=== PATIENT | male | born 1955 | race Caucasian/White ===

== ENCOUNTER 2017-05-14 17:51 | Emergency (ER) | payer SELFPAY ==
[~2017-05-14] VITALS: Ht 162.6 cm; Wt 72.7 kg
[2017-05-14 19:48] LABS: ANION GAP 15 mmol/L (8-16); CALCIUM, TOTAL 8.7 mg/dL (8.8-10.5); CARBON DIOXIDE 20 mmol/L (22-29); CHLORIDE 102 mmol/L (98-107); CREATININE 0.64 mg/dL (0.60-1.30); GLOMERULAR FILTR. RATE CALC > 60 mL/min (>60); POTASSIUM 3.6 mmol/L (3.5-5.1); SODIUM SERUM 137 mmol/L (136-145); UREA NITROGEN, BLOOD 5 mg/dL (7-18)
[2017-05-14 19:53] LABS: BASOPHILS % (AUTO) 1.5 % (0.0-2.0); EOSINOPHILS % (AUTO) 2.5 % (1.0-6.0); HEMATOCRIT 39.2 % (41-53); HEMOGLOBIN 13.6 g/dL (13.5-17.5); LYMPHOCYTES # (AUTO) 1.6 K/uL (1.0-4.8); LYMPHOCYTES % (AUTO) 28.1 % (22.0-44.0); MEAN CORPUSCULAR HEMOGLOBIN 32.2 pg (26.0-34.0); MEAN CORPUSCULAR HGB CONC 34.7 G/dL (31.0-37.0); MEAN CORPUSCULAR VOLUME 93 fL (80-100); MONOCYTES # (AUTO) 0.6 K/uL (0.1-1.0); MONOCYTES % (AUTO) 10.3 % (2.0-9.0); NEUTROPHILS # (AUTO) 3.2 K/uL (1.8-7.7); NEUTROPHILS % (AUTO) 57.6 % (40.0-70.0); RED BLOOD CELL COUNT(AUTO) 4.23 MIL/uL (4.50-5.90); RED CELL DISTRIBUTION WIDTH 14.9 % (11.5-14.5); WHITE BLOOD COUNT (AUTO) 5.6 K/uL (4.5-11.0)
[2017-05-14 19:54] LABS: ALANINE AMINOTRANSFERASE 60 U/L (12-78); ALBUMIN 3.7 g/dL (3.4-5.0); ASPARTATE AMINOTRANSFERASE 83 U/L (15-37); BILIRUBIN,TOTAL 0.9 mg/dL (0.1-1.0); TOTAL PROTEIN, SERUM 8.2 g/dL (6.4-8.2)
[2017-05-14] MEDS ORDERED: TraMADol HCL 50 MG TABLET PO ONE (20:15)
[2017-05-14 20:34] LABS: PLATELET COUNT (AUTO) 128 K/uL (150-450)
[2017-05-14] MEDS ORDERED: CEFTAROLINE 600 MG/D5W 250 ML IV ONE (21:30)
[2017-05-14 22:47] VITALS: BP 129/74
== END 2017-05-14 22:51 | disposition home or self-care (01) ==
LOC: EMS 17:53
DX: L03.113 Cellulitis of right upper limb (principal); R94.5 Abnormal results of liver function studies; D69.6 Thrombocytopenia, unspecified
CPT/HCPCS: 36415; 73130; 80053; 85025; 87040; 96365; 99285; J0712

== ENCOUNTER 2017-12-20 18:54 | Emergency (ER) | payer SELFPAY ==
[~2017-12-20] VITALS: Ht 170.2 cm; Wt 80.0 kg
[2017-12-20 19:38] LABS: HEMATOCRIT 39.8 % (41-53); HEMOGLOBIN 13.7 g/dL (13.5-17.5); MEAN CORPUSCULAR HEMOGLOBIN 31.4 pg (26.0-34.0); MEAN CORPUSCULAR HGB CONC 34.3 G/dL (31.0-37.0); MEAN CORPUSCULAR VOLUME 91 fL (80-100); PLATELET COUNT (AUTO) 65 K/uL (150-450); RED BLOOD CELL COUNT(AUTO) 4.36 MIL/uL (4.50-5.90); RED CELL DISTRIBUTION WIDTH 16.7 % (11.5-14.5)
[2017-12-20 19:54] LABS: ANION GAP 13 mmol/L (8-16); CALCIUM, TOTAL 8.4 mg/dL (8.8-10.5); CARBON DIOXIDE 24 mmol/L (22-29); CHLORIDE 104 mmol/L (98-107); CREATININE 0.68 mg/dL (0.60-1.30); GLOMERULAR FILTR. RATE CALC > 60 mL/min (>60); GLUCOSE,RANDOM 105 mg/dL (70-110); SODIUM SERUM 141 mmol/L (136-145); UREA NITROGEN, BLOOD 7 mg/dL (7-18)
[2017-12-20 20:01] LABS: ALANINE AMINOTRANSFERASE 49 U/L (12-78); ALBUMIN 3.8 g/dL (3.4-5.0); ALKALINE PHOSPHATASE 178 U/L (46-116); ASPARTATE AMINOTRANSFERASE 118 U/L (15-37); BILIRUBIN,TOTAL 0.6 mg/dL (0.1-1.0); TOTAL PROTEIN, SERUM 8.2 g/dL (6.4-8.2)
[2017-12-20 20:08] LABS: BASOPHILS % (MANUAL) 3 % (0-2); EOSINOPHILS % (MANUAL) 3 % (1-6); LYMPHOCYTES % (MANUAL) 57 % (22-44); MONOCYTES % (MANUAL) 6 % (2-9); SEGMENTED NEUTROPHILS % 31 % (40-70)
[2017-12-20] MEDS ORDERED: KETOROLAC TROMETHAMINE 60 MG/2 ML VIAL IM ONE (22:00)
[2017-12-20 22:35] VITALS: BP 126/84
== END 2017-12-20 23:04 | disposition home or self-care (01) ==
LOC: EMS 18:55
DX: R07.89 Other chest pain (principal); E86.0 Dehydration
CPT/HCPCS: 36415; 71045; 80053; 84484; 85025; 93005; 96372; 99285; J1885

== ENCOUNTER 2018-05-11 13:44 | Emergency (ER) | payer SELFPAY ==
[~2018-05-11] VITALS: Ht 172.7 cm; Wt 75.0 kg
[2018-05-11] MEDS ORDERED: POVIDONE-IODINE 10% 15 ML SOLUTION UD TP ONE (14:30)
[2018-05-11] MEDS ORDERED: PERTUSS(ACELL),DIPH,TET VAC/PF 0.5 ML VIAL IM ONE (14:30)
[2018-05-11] MEDS ORDERED: IBUPROFEN 800 MG TABLET PO ONE (14:30)
[2018-05-11] MEDS ORDERED: AMOX TR/POT CLAV 875 MG/125 MG TABLET PO ONE (14:30)
[2018-05-11 15:10] VITALS: BP 112/82
== END 2018-05-11 15:17 | disposition home or self-care (01) ==
LOC: EMS 13:44
DX: S51.851A Open bite of right forearm, initial encounter (principal); W54.0XXA Bitten by dog, initial encounter; Y93.89 Activity, other specified; Y92.410 Unspecified street and highway as the place of occurrence of the external cause; Y99.8 Other external cause status
CPT/HCPCS: 90471; 90715; 99284

== ENCOUNTER 2018-07-26 08:12 | Emergency (ER) | payer SELFPAY ==
[~2018-07-26] VITALS: Ht 165.1 cm; Wt 70.5 kg
[2018-07-26] MEDS ORDERED: OxyCODONE HCL/ACETAMINOPHEN 5-325 MG TABLET PO ONE (09:00)
[2018-07-26] MEDS ORDERED: KETOROLAC TROMETHAMINE 60 MG/2 ML VIAL IM ONE (11:30)
[2018-07-26 12:02] VITALS: BP 137/74
== END 2018-07-26 12:08 | disposition home or self-care (01) ==
LOC: EMS 08:13
DX: S50.01XA Contusion of right elbow, initial encounter (principal); M25.531 Pain in right wrist; M79.631 Pain in right forearm; W19.XXXA Unspecified fall, initial encounter; Y93.89 Activity, other specified; Y92.89 Other specified places as the place of occurrence of the external cause; Y99.8 Other external cause status
CPT/HCPCS: 29105; 73080; 73090; 73110; 73130; 96372; 99284; J1885

== ENCOUNTER 2018-11-07 15:00 | Emergency (ER) | payer SELFPAY ==
[~2018-11-07] VITALS: Ht 165.1 cm; Wt 68.2 kg
[2018-11-07 15:19] VITALS: BP 115/105
[2018-11-07] MEDS ORDERED: TraMADol HCL 50 MG TABLET PO ONE (18:00)
== END 2018-11-07 18:55 | disposition home or self-care (01) ==
LOC: EMS 15:01
DX: S42.031A Displaced fracture of lateral end of right clavicle, initial encounter for closed fracture (principal); W18.09XA Striking against other object with subsequent fall, initial encounter; Y93.89 Activity, other specified; Y92.89 Other specified places as the place of occurrence of the external cause; Y99.8 Other external cause status

== ENCOUNTER 2019-08-14 09:42 | Emergency (ER) | payer SELFPAY ==
[~2019-08-14] VITALS: Ht 162.6 cm; Wt 68.2 kg
[2019-08-14] MEDS ORDERED: BACITRACIN 0.9 GM PACKET OINTMENT TP ONE (10:30)
[2019-08-14] MEDS ORDERED: IBUPROFEN 600 MG TABLET PO ONE (10:30)
[2019-08-14] MEDS ORDERED: ACETAMINOPHEN 500 MG TABLET PO ONE (10:30)
[2019-08-14 11:26] VITALS: BP 119/74
== END 2019-08-14 11:47 | disposition home or self-care (01) ==
LOC: EMS 09:43
DX: T22.211A Burn of second degree of right forearm, initial encounter (principal); T31.0 Burns involving less than 10% of body surface; M19.90 Unspecified osteoarthritis, unspecified site; X10.2XXA Contact with fats and cooking oils, initial encounter; Y93.G3 Activity, cooking and baking; Y92.89 Other specified places as the place of occurrence of the external cause; Y99.8 Other external cause status
CPT/HCPCS: 16020

== ENCOUNTER 2020-01-30 16:29 | Emergency (ER) | payer MEDICAID ==
[~2020-01-30] VITALS: Ht 165.1 cm; Wt 73.6 kg
[2020-01-30 16:31] VITALS: BP 129/78
[2020-01-30] MEDS ORDERED: BACITRACIN 0.9 GM PACKET OINTMENT TP ONE (17:00)
== END 2020-01-30 17:30 | disposition home or self-care (01) ==
LOC: EMS 16:30
DX: S51.811A Laceration without foreign body of right forearm, initial encounter (principal); X10.2XXA Contact with fats and cooking oils, initial encounter; Y93.89 Activity, other specified; Y92.89 Other specified places as the place of occurrence of the external cause; Y99.8 Other external cause status

== ENCOUNTER 2020-02-13 18:00 | Emergency (ER) | payer MEDICAID ==
[~2020-02-13] VITALS: Ht 167.6 cm; Wt 72.7 kg
[2020-02-13] MEDS ORDERED: PERTUSS(ACELL),DIPH,TET VAC/PF 0.5 ML VIAL IM ONE (18:30)
[2020-02-13] MEDS ORDERED: IBUPROFEN 600 MG TABLET PO ONE (18:30)
[2020-02-13 21:30] VITALS: BP 129/77
== END 2020-02-13 22:19 | disposition home or self-care (01) ==
LOC: EMS 18:02
DX: S01.81XA Laceration without foreign body of other part of head, initial encounter (principal); S59.911A Unspecified injury of right forearm, initial encounter; F10.129 Alcohol abuse with intoxication, unspecified; M54.2 Cervicalgia; W19.XXXA Unspecified fall, initial encounter; Y93.89 Activity, other specified; Y92.89 Other specified places as the place of occurrence of the external cause; Y99.8 Other external cause status
CPT/HCPCS: 70450; 72125; 90471; 90715

== ENCOUNTER 2022-04-25 22:18 | Emergency (ER) | payer MEDICAID, OTHER ==
[~2022-04-25] VITALS: Ht 165.1 cm; Wt 72.7 kg
[~2022-04-25 22:18] MED LIST: ACET650S14 PR; DICL4100G TP; DULO20CA71 PO; FOLI-130 PO; FURO20 PO; GABA-1216 PO; LACT10SO10 PO; MULT-1203 PO; PANT-31 PO; SPIR-37 PO; THIA100T80 PO
[2022-04-25] MEDS ORDERED: PERTUSS(ACELL),DIPH,TET VAC/PF 0.5 ML SYRINGE IM. ONE (23:00)
[2022-04-25] MEDS ORDERED: SODIUM CHLORIDE 0.9% 250 ML IRRIG SOLUTION BOTTLE IRRIG ONE (23:00)
[2022-04-25] MEDS ORDERED: NEOMYCIN/BACITRACIN/POLYMYXIN B OINTMENT PACKET TP ONE (23:45)
[2022-04-26 03:02] VITALS: BP 144/69
== END 2022-04-26 03:04 | disposition home or self-care (01) ==
LOC: EMS 22:20
DX: S51.011A Laceration without foreign body of right elbow, initial encounter (principal); F10.229 Alcohol dependence with intoxication, unspecified; Z79.899 Other long term (current) drug therapy; Y90.9 Presence of alcohol in blood, level not specified; W01.198A Fall on same level from slipping, tripping and stumbling with subsequent striking against other object, initial encounter; Y93.89 Activity, other specified; Y92.89 Other specified places as the place of occurrence of the external cause; Y99.8 Other external cause status
CPT/HCPCS: 70450; 72125; 99284

== ENCOUNTER 2023-10-07 05:11 | Emergency (ER) | payer MEDICAID, OTHER ==
[~2023-10-07] VITALS: Ht 167.6 cm; Wt 72.7 kg
[2023-10-07 05:31] VITALS: BP 126/74; PULSE 80; RESP 16; TEMP 97.9
[2023-10-07] MEDS ORDERED: ACETAMINOPHEN 500 MG TABLET PO ONE (06:15)
[2023-10-07] MEDS ORDERED: PERTUSS(ACELL),DIPH,TET VAC/PF 0.5 ML SYRINGE IM. ONE (06:15)
[2023-10-07] MEDS ORDERED: BACITRACIN 0.9 GM PACKET OINTMENT TP ONE (06:15)
[2023-10-07] MEDS ORDERED: BACI28.410 TP ×2 (06:32→06:56)
[2023-10-07] MEDS ORDERED: ACET-3385 PO ×2 (06:32→06:56)
== END 2023-10-07 07:24 | disposition home or self-care (01) ==
LOC: EMS 05:12
DX: S51.812A Laceration without foreign body of left forearm, initial encounter (principal); F10.20 Alcohol dependence, uncomplicated; M19.90 Unspecified osteoarthritis, unspecified site; Z59.00 Homelessness unspecified; Y90.9 Presence of alcohol in blood, level not specified; W19.XXXA Unspecified fall, initial encounter; Y93.89 Activity, other specified; Y92.89 Other specified places as the place of occurrence of the external cause; Y99.8 Other external cause status
CPT/HCPCS: 90471; 90715; 99283

== ENCOUNTER 2024-06-10 07:30 | Emergency (ER) | payer OTHER ==
[~2024-06-10] VITALS: Ht 165.1 cm; Wt 68.2 kg
[~2024-06-10 07:30] MED LIST changes: +ACET-3385 PO; +BACI28.410 TP
[2024-06-10 08:20] LABS: ANION GAP 14 mmol/L (8-16); CALCIUM, TOTAL 7.8 mg/dL (8.8-10.5); CARBON DIOXIDE 20 mmol/L (22-29); CHLORIDE 104 mmol/L (98-107); CREATININE 0.64 mg/dL (0.60-1.30); GLOMERULAR FILTR. RATE CALC > 60 mL/min (>60); GLUCOSE,RANDOM 120 mg/dL (70-110); POTASSIUM 3.2 mmol/L (3.5-5.1); SODIUM SERUM 138 mmol/L (136-145); UREA NITROGEN, BLOOD 8 mg/dL (7-18)
[2024-06-10 08:26] LABS: ALANINE AMINOTRANSFERASE 75 U/L (12-78); ALBUMIN 3.5 g/dL (3.4-5.0); ALKALINE PHOSPHATASE 145 U/L (46-116); ASPARTATE AMINOTRANSFERASE 138 U/L (15-37); BILIRUBIN,TOTAL 1.1 mg/dL (0.1-1.0); TOTAL PROTEIN, SERUM 7.5 g/dL (6.4-8.2)
[2024-06-10 08:27] LABS: B-TYPE NATRIURETIC PEPTIDE 89 pg/mL (0-100); BASOPHILS % (AUTO) 3.8 % (0.0-2.0); EOSINOPHILS % (AUTO) 2.1 % (1.0-6.0); HEMATOCRIT 38.8 % (41-53); LYMPHOCYTES # (AUTO) 0.9 K/uL (1.0-4.8); LYMPHOCYTES % (AUTO) 36.6 % (22.0-44.0); MEAN CORPUSCULAR HEMOGLOBIN 32.9 pg (26.0-34.0); MEAN CORPUSCULAR HGB CONC 33.6 G/dL (31.0-37.0); MEAN CORPUSCULAR VOLUME 98 fL (80-100); MONOCYTES # (AUTO) 0.2 K/uL (0.1-1.0); MONOCYTES % (AUTO) 8.3 % (2.0-9.0); NEUTROPHILS # (AUTO) 1.2 K/uL (1.8-7.7); NEUTROPHILS % (AUTO) 49.2 % (40.0-70.0); RED BLOOD CELL COUNT(AUTO) 3.97 MIL/uL (4.50-5.90); RED CELL DISTRIBUTION WIDTH 13.8 % (11.5-14.5); WHITE BLOOD COUNT (AUTO) 2.4 K/uL (4.5-11.0)
[2024-06-10 08:28] LABS: TROPONIN I-HIGH SENSITIVITY 16 ng/L (<76)
[2024-06-10 08:52] LABS: INR 1.2 (0.9-1.1); PROTHROMBIN TIME 12.1 SEC (9.4-11.6)
[2024-06-10] MEDS: BACITRACIN 0.9 GM PACKET OINTMENT TP ONE (09:03)
[2024-06-10 09:05] LABS: PLATELET COUNT (AUTO) 69 K/uL (150-450)
[2024-06-10 09:06] LABS: PLATELET MORPHOLOGY COMMENT LARGE PLTS PRESENT
[2024-06-10] MEDS: SODIUM CHLORIDE 0.9% 250 ML IRRIG SOLUTION BOTTLE IRRIG ONE (09:20)
[2024-06-10 09:39] LABS: APPEARANCE,URINE CLEAR (CLEAR); BILIRUBIN,URINE NEGATIVE (NEGATIVE); COLOR,URINE YELLOW (YELLOW); GLUCOSE, URINE (UA) NEGATIVE (NEGATIVE); KETONES,URINE NEGATIVE (NEGATIVE); LEUKOCYTE ESTERASE ,URINE NEGATIVE (NEGATIVE); NITRATE,URINE POSITIVE (NEGATIVE); OCCULT BLOOD,URINE MODERATE (NEGATIVE); PH,URINE 5.5 (5.0-8.0); PH,URINE DRUG SCREEN 5.5 (5.0-8.0); PROTEIN,URINE 30-70 mg/dL (NEGATIVE); SPECIFIC GRAVITIY, URINE 1.013 (1.003-1.030); UROBILINOGEN,URINE <=1.0 mg/dL (<=1.0)
[2024-06-10] MEDS: POTASSIUM CHLORIDE 20 MEQ ER TABLET PO ONE (09:45)
[2024-06-10 09:55] LABS: AMPHET/METH SCREEN,URINE NEGATIVE (NEGATIVE); BARBITURATE SCREEN, URINE NEGATIVE (NEGATIVE); BENZODIAZEPINES SCREEN,URINE NEGATIVE (NEGATIVE); CANNABINOID SCREEN,URINE POSITIVE (NEGATIVE); COCAINE SCREEN,URINE NEGATIVE (NEGATIVE); METHADONE SCREEN, URINE NEGATIVE (NEGATIVE); OPIATE SCREEN,URINE NEGATIVE (NEGATIVE); PHENCYCLIDINE SCREEN,URINE NEGATIVE (NEGATIVE)
[2024-06-10 09:57] LABS: ALCOHOL, URINE DRUG SCREEN POSITIVE (NEGATIVE)
[2024-06-10 10:09] LABS: BACTERIA,URINE Many /HPF (None Seen); WBC,URINE 0-2 /HPF (0-5)
[2024-06-10 11:01] VITALS: BP 152/96; PULSE 81; RESP 18; TEMP 97.9; O2SAT 98
== END 2024-06-10 11:58 | disposition home or self-care (01) ==
LOC: EMS 07:30
DX: S51.812A Laceration without foreign body of left forearm, initial encounter (principal); S51.811A Laceration without foreign body of right forearm, initial encounter; S09.90XA Unspecified injury of head, initial encounter; F10.10 Alcohol abuse, uncomplicated; W01.0XXA Fall on same level from slipping, tripping and stumbling without subsequent striking against object, initial encounter; Y93.89 Activity, other specified; Y92.89 Other specified places as the place of occurrence of the external cause; Y99.8 Other external cause status; Y90.6 Blood alcohol level of 120-199 mg/100 ml
CPT/HCPCS: 99285; 70450; 71045; 80053; 83880; 84484; 85025; 85610; 85730; 36415; 87086; 87186; 72125; 93005; 80307; 81001; G0480

== ENCOUNTER 2025-03-18 18:36 | Emergency (ER) | payer OTHER ==
[~2025-03-18] VITALS: Ht 167.6 cm; Wt 77.3 kg
[~2025-03-18 18:36] MED LIST changes: +DULO20CA19 PO; -DULO20CA71 PO; -FURO20 PO; +FURO20TA5 PO
[2025-03-18 18:48] VITALS: BP 141/72; PULSE 99; RESP 18; TEMP 98.5; O2SAT 99
[2025-03-18] MEDS: BACITRACIN 28 GM OINTMENT TP ONE (20:24)
[2025-03-18] MEDS: ACETAMINOPHEN 500 MG TABLET PO ONE (20:24)
[2025-03-18] MEDS: IBUPROFEN 600 MG TABLET PO ONE (20:50)
== END 2025-03-18 20:52 | disposition home or self-care (01) ==
LOC: EMS 18:36
DX: S41.111A Laceration without foreign body of right upper arm, initial encounter (principal); F10.90 Alcohol use, unspecified, uncomplicated; M19.90 Unspecified osteoarthritis, unspecified site; Z79.899 Other long term (current) drug therapy; Z59.00 Homelessness unspecified; W19.XXXA Unspecified fall, initial encounter; Y93.89 Activity, other specified; Y92.89 Other specified places as the place of occurrence of the external cause; Y99.8 Other external cause status; Y90.9 Presence of alcohol in blood, level not specified
CPT/HCPCS: 99283